=== PATIENT | female | born 1995 | race African-American/Black ===

== ENCOUNTER 2024-02-26 11:17 | Emergency (ER) | payer MEDICAID ==
[~2024-02-26] VITALS: Ht 167.6 cm; Wt 65.0 kg
[2024-02-26 11:19] VITALS: O2SAT 98
[2024-02-26 13:48] VITALS: TEMP 98.6
[2024-02-26] MEDS: ACETAMINOPHEN 325MG TABLET PO ONE (13:48)
[2024-02-26 13:49] VITALS: BP 124/56; PULSE 89; RESP 18
[2024-02-26] MEDS: HYDROCODONE/ACETAMINOPHEN 5/325MG TABLET PO ONE (13:49)
[2024-02-26] MEDS ORDERED: IBUP-2029 MT (15:47)
[2024-02-26] MEDS ORDERED: CYCL10TA21 MT (15:48)
== END 2024-02-26 15:57 | disposition home or self-care (01) ==
LOC: ER 11:17
DX: M54.2 Cervicalgia (principal); M25.511 Pain in right shoulder; R51.9 Headache, unspecified; V43.62XA Car passenger injured in collision with other type car in traffic accident, initial encounter; Y93.89 Activity, other specified; Y92.89 Other specified places as the place of occurrence of the external cause; Y99.8 Other external cause status
CPT/HCPCS: 71045; 73030; 81025; 99284; A4565